=== PATIENT | male | born 1940 | race Caucasian/White ===

== ENCOUNTER 2022-03-23 10:49 | Day surgery (SDC) | payer MEDICARE, OTHER ==
[2022-03-18 10:27] LABS: BASOPHILS % (AUTO) 0.8 % (0-1); EOSINOPHILS # (AUTO) 0.2 X10'3 (0-0.9); HEMATOCRIT 37.6 % (42.0-52.0); HEMOGLOBIN 12.5 g/dl (14.0-17.9); LYMPHOCYTES # (AUTO) 1.4 X10'3 (1.1-4.8); LYMPHOCYTES % (AUTO) 33.4 % (21-51); MEAN CORPUSCULAR HEMOGLOBIN 28.2 PG (27.0-31.0); MEAN CORPUSCULAR HGB CONC 33.3 g/dL (33.0-36.5); MEAN CORPUSCULAR VOLUME 84.6 FL (78-98); MEAN PLATELET VOLUME 6.7 FL (7.4-10.4); MONOCYTES # (AUTO) 0.4 X10'3 (0-0.9); MONOCYTES % (AUTO) 9.9 % (2-12); NEUTROPHILS # (AUTO) 2.1 X10'3 (1.8-7.7); NEUTROPHILS % (AUTO) 51.9 % (42-75); PLATELET COUNT 205 X10'3 (140-440); RED BLOOD COUNT 4.45 X10'6 (4.70-6.10); RED CELL DISTRIBUTION WIDTH 15.4 % (11.5-14.5)
[2022-03-18 10:42] LABS: ALBUMIN 3.3 G/DL (3.4-5.0); ANION GAP 6 (8-16); BLOOD UREA NITROGEN 16 MG/DL (7-18); BUN/CREATININE RATIO 17.8 (5.4-32.0); CALCIUM 8.9 MG/DL (8.5-10.1); CHLORIDE 106 MMOL/L (99-107); CHOL/HDL RATIO 2.3 (0.00-4.99); CHOLESTEROL 157 MG/DL (0-200); GLUCOSE 89 MG/DL (70-104); HDL CHOLESTEROL 67 MG/DL (35-60); LDL CHOLESTEROL 79 MG/DL (50-100); POTASSIUM 4.7 MMOL/L (3.5-5.1); SODIUM 142 MMOL/L (135-145); TRIGLYCERIDES 35 MG/DL (20-135); eGFR 81 ML/MIN
[2022-03-18 10:43] LABS: APTT 38 SECONDS (22-32)
[2022-03-23] VITALS (8 sets, daily range): BP systolic 85–178; BP diastolic 47–85
[~2022-03-23] VITALS: Ht 177.8 cm; Wt 60.3 kg
[2022-03-23] MEDS ORDERED: diphenhydrAMINE 25mg capsule PO PRN (11:15)
[2022-03-23] MEDS ORDERED: normal saline 1,000 ML IV SCH (11:15)
[2022-03-23] MEDS ORDERED: LORazepam 0.5 MG tablet PO PRN (11:15)
[2022-03-23] MEDS ORDERED: FERR28CA PO (11:27)
[2022-03-23] MEDS ORDERED: CHOL2400 PO (11:27)
[2022-03-23] MEDS ORDERED: verapamil 2.5 mg/ml inj IV ONE (12:07)
[2022-03-23] MEDS ORDERED: midazolam 1 mg/ML 2ml injection ONE (12:07)
[2022-03-23] MEDS ORDERED: LIDOcaine 1%/PF 5ML 10 MG/ML VIAL ONE (12:07)
[2022-03-23] MEDS ORDERED: fentaNYL/PF 50MCG/1 ML 2ML syringe ONE (12:07)
[2022-03-23] MEDS ORDERED: iohexol 350MG/ML 100ml bottle IV ONE (12:08)
[2022-03-23] MEDS ORDERED: heparin 1,000unit/ml 10ml vial 10 ML ONE (12:08)
[2022-03-23] MEDS ORDERED: nitroGLYCERIN-Tridil 50MG/D5W 250 ML IV ONE (12:08)
[2022-03-23] MEDS ORDERED: diphenhydrAMINE 50 mg/ml inj ONE (13:40)
[2022-03-23 14:08] LABS: ISTAT HGB ART 11.2 g/dl (14.0-18.0); ISTAT Hct ART 33 %PCV (42-52); ISTAT O2 SATURATION ARTERIAL 93 % (95-98); ISTAT SOURCE ART
[2022-03-23 14:21] LABS: ISTAT Hct MIX 35 %PCV (42-52); ISTAT O2 SATURATION MIX VENOUS 70 % (60-80); ISTAT SOURCE VEN
[2022-03-23] MEDS ORDERED: HYDROcodone/acetaminophen 10/325mg tab PO PRN (14:45)
[2022-03-23] MEDS ORDERED: HYDROcodone/acetaminophen 5mg/325mg tablet PO PRN (14:45)
== END 2022-03-23 16:45 | disposition home or self-care (01) ==
LOC: SSTAY O 10:49
PROVIDERS: ATTEND Student in an Organized Health Care Education/Training Program
DX: I35.0 Nonrheumatic aortic (valve) stenosis (principal); Z79.899 Other long term (current) drug therapy; Z98.890 Other specified postprocedural states; Z79.01 Long term (current) use of anticoagulants
CPT/HCPCS: 36415; 80048; 80061; 82803; 85014; 85025; 85610; 85730; 93005; 93456; 99152; C1769; C1894; J1200; J1644; J2250; J3010; J3490; J7030; Q9967; A4620; A5120; A6258; A6402

== ENCOUNTER 2022-05-05 09:45 | Outpatient (CLI) | payer MEDICARE, OTHER ==
[~2022-05-05 09:45] MED LIST: CHOL2400 PO; FERR28CA PO
[2022-05-05 10:19] LABS: BASOPHILS % (AUTO) 0.9 % (0-1); EOSINOPHILS # (AUTO) 0.1 X10'3 (0-0.9); EOSINOPHILS % (AUTO) 1.8 % (0-6); HEMATOCRIT 36.7 % (42.0-52.0); HEMOGLOBIN 12.3 g/dl (14.0-17.9); LYMPHOCYTES # (AUTO) 1.5 X10'3 (1.1-4.8); LYMPHOCYTES % (AUTO) 34.4 % (21-51); MEAN CORPUSCULAR HEMOGLOBIN 28.8 PG (27.0-31.0); MEAN CORPUSCULAR HGB CONC 33.5 g/dL (33.0-36.5); MEAN CORPUSCULAR VOLUME 85.9 FL (78-98); MEAN PLATELET VOLUME 6.4 FL (7.4-10.4); MONOCYTES # (AUTO) 0.5 X10'3 (0-0.9); MONOCYTES % (AUTO) 10.4 % (2-12); NEUTROPHILS # (AUTO) 2.4 X10'3 (1.8-7.7); NEUTROPHILS % (AUTO) 52.5 % (42-75); PLATELET COUNT 209 X10'3 (140-440); RED BLOOD COUNT 4.27 X10'6 (4.70-6.10); RED CELL DISTRIBUTION WIDTH 14.9 % (11.5-14.5); WHITE BLOOD COUNT 4.5 X10'3 (4.5-11.0)
[2022-05-05 10:30] LABS: APTT 36 SECONDS (22-32)
[2022-05-05 10:32] LABS: ALANINE AMINOTRANSFERASE 16 U/L (12-78); ALBUMIN 3.3 G/DL (3.4-5.0); ALBUMIN/GLOBULIN RATIO 0.8 (1.1-1.5); ALKALINE PHOSPHATASE 77 IU/L (46-116); ANION GAP 2 (8-16); ASPARTATE AMINO TRANSFERASE 18 U/L (10-37); BILIRUBIN,TOTAL 0.5 MG/DL (0.1-1.0); BLOOD UREA NITROGEN 22 MG/DL (7-18); BUN/CREATININE RATIO 21.2 (5.4-32.0); CALCIUM 9.1 MG/DL (8.5-10.1); CHLORIDE 105 MMOL/L (99-107); CREATININE 1.04 MG/DL (0.60-1.10); GLUCOSE 81 MG/DL (70-104); POTASSIUM 4.3 MMOL/L (3.5-5.1); SODIUM 140 MMOL/L (135-145); TOTAL CARBON DIOXIDE 32.8 MMOL/L (24-32); TOTAL PROTEIN 7.3 G/DL (6.4-8.2); eGFR 69 ML/MIN
[2022-05-05] MEDS ORDERED: IODIXANOL 320 MG/ML INFUS..BTL 100ML IV ONE (11:13)
== END 2022-05-05 23:59 | disposition home or self-care (01) ==
LOC: RAD 09:45
PROVIDERS: ATTEND Internal Medicine Cardiovascular Disease
DX: Z01.818 Encounter for other preprocedural examination (principal); R91.8 Other nonspecific abnormal finding of lung field; I70.90 Unspecified atherosclerosis; R94.2 Abnormal results of pulmonary function studies; I35.0 Nonrheumatic aortic (valve) stenosis; R06.02 Shortness of breath; I65.29 Occlusion and stenosis of unspecified carotid artery; Z87.891 Personal history of nicotine dependence; Z79.899 Other long term (current) drug therapy
CPT/HCPCS: 36415; 71046; 71275; 74174; 80053; 85025; 85610; 85730; 94010; 94727; 94729; J3490; Q9967

== ENCOUNTER 2022-06-24 08:17 | Inpatient (IN) | payer MEDICARE, OTHER ==
[2022-06-18 11:32] LABS: BASOPHILS % (AUTO) 0.8 % (0-1); EOSINOPHILS # (AUTO) 0.1 X10'3 (0-0.9); EOSINOPHILS % (AUTO) 2.4 % (0-6); LYMPHOCYTES # (AUTO) 1.7 X10'3 (1.1-4.8); LYMPHOCYTES % (AUTO) 31.8 % (21-51); MEAN CORPUSCULAR HEMOGLOBIN 28.5 PG (27.0-31.0); MEAN CORPUSCULAR HGB CONC 32.8 g/dL (33.0-36.5); MEAN PLATELET VOLUME 6.7 FL (7.4-10.4); MONOCYTES # (AUTO) 0.5 X10'3 (0-0.9); MONOCYTES % (AUTO) 9.6 % (2-12); NEUTROPHILS % (AUTO) 55.4 % (42-75); PRE OP HEMATOCRIT 39.5 % (42.0-52.0); PRE OP HEMOGLOBIN 12.9 g/dL (14.0-17.9); PRE OP PLATELET COUNT 197 X10'3 (140-440); RED BLOOD COUNT 4.54 X10'6 (4.70-6.10); RED CELL DISTRIBUTION WIDTH 15.1 % (11.5-14.5)
[2022-06-18 11:37] LABS: CLARITY,URINE CLEAR (Clear); COLOR,URINE YELLOW (Yellow); GLUCOSE, URINE NEGATIVE (Neg); KETONES,URINE NEGATIVE (Neg); LEUKOCYTE ESTERASE ,URINE NEGATIVE (Neg); NITRITES, URINE NEGATIVE (Neg); OCCULT BLOOD,URINE NEGATIVE (Neg); PROTEIN,URINE NEGATIVE (Neg); UROBILINOGEN,URINE 0.2 E.U/dL (0.2-1.0)
[2022-06-18 11:42] LABS: UA COLLECTION TYPE CLN CATCH MIDSTREAM
[2022-06-18 11:54] LABS: ALBUMIN 3.5 G/DL (3.4-5.0); ALKALINE PHOSPHATASE 73 IU/L (46-116); BLOOD UREA NITROGEN 18 MG/DL (7-18); BUN/CREATININE RATIO 17.1 (5.4-32.0); CALCIUM 9.1 MG/DL (8.5-10.1); CHLORIDE 103 MMOL/L (99-107); CREATININE 1.05 MG/DL (0.60-1.10); PRE OP ALT 13 U/L (30-65); PRE OP ANION GAP 2 (8-16); PRE OP AST 19 U/L (10-37); PRE OP BILIRUB, TOTAL 0.5 MG/DL (0.0-1.0); PRE OP GLUCOSE 95 MG/DL (70-104); PRE OP POTASSIUM 4.9 MMOL/L (3.4-5.1); PRE OP SODIUM 135 MMOL/L (135-145); TOTAL CARBON DIOXIDE 29.9 MMOL/L (24-32); TOTAL PROTEIN 7.1 G/DL (6.4-8.2); eGFR 68 ML/MIN
[2022-06-18 12:01] LABS: PRE OP PROTIME 10.7 SECONDS (9.0-12.0)
[~2022-06-24] VITALS: Ht 170.2 cm; Wt 58.0 kg
[~2022-06-24 08:17] MED LIST changes: -CHOL2400 PO; -FERR28CA PO; +IRON PO; +VITAMIN D3 PO; +aspirin 325mg tablet PO ONE; +ceFAZolin inj. 2,000 MG in dextrose 5%-water 100 ML IV ONE; +famotidine 20mg tablet PO ONE; +nitroPRUSSIDE (NIPRIDE) (200MCG/ML) 100ML Drip IV SCH; +ondansetron/PF 4mg/2ml inj IV PRN; +phenylephrine inj 50 MG in normal saline 250ml IV solN IV SCH; +protamine sulfate 10mg/ml inj. ONE; +ringers solution, lacted 1,000 ML IV SCH; +vancomycin/NS 1 GM in NS 250 ML IV ONE
[2022-06-24 08:55] VITALS: BP_SYST 149; BP_SYST 159; BP_DIAS 78; BP_DIAS 93
[2022-06-24] MEDS ORDERED: LIDOcaine 1% 30ml preserv. free vial ONE (11:54)
[2022-06-24] MEDS ORDERED: heparin 1,000 UNITS/NS 500ml 0 ML ONE (11:54)
[2022-06-24] MEDS ORDERED: iohexol 350MG/ML 100ml bottle IV ONE ×2 (11:54→11:58)
[2022-06-24] MEDS ORDERED: FENTANYL CITRATE/PF 50 MCG/1 ML VIAL ONE ×2 (12:10→13:26)
[2022-06-24] MEDS ORDERED: midazolam 1 mg/ML 2ml injection ONE (12:11)
[2022-06-24] MEDS ORDERED: heparin 1,000 UNITS/NS 500ml 500 ML ONE (12:42)
[2022-06-24] MEDS ORDERED: phenylephrine 10mg/ml inj. -priapism dosing ONE (13:34)
[2022-06-24] MEDS ORDERED: heparin 1,000unit/ml 10ml vial 10 ML ONE (13:34)
[2022-06-24] MEDS ORDERED: epiNEPHrine 1 mg/ml inj ONE (13:34)
[2022-06-24] MEDS ORDERED: propofol inj 40 ML IV ONE (13:34)
[2022-06-24] MEDS ORDERED: labetalol 20mg/4ml (5mg/ml) syringe IV ONE (13:45)
[2022-06-24] MEDS ORDERED: hydrALAZINE 20mg/ml inj. IV ONE ×2 (13:51→14:38)
[2022-06-24] MEDS ORDERED: docusate sod 100mg capsule PO PRN (13:55)
[2022-06-24] MEDS ORDERED: ondansetron/PF 4mg/2ml inj IV PRN (13:55)
[2022-06-24] MEDS ORDERED: diphenhydrAMINE 25mg capsule PO PRN (13:55)
[2022-06-24] MEDS ORDERED: magnesium 2GM in 50ml NS 50 ML IV PRN (13:55)
[2022-06-24] MEDS ORDERED: ALPRAZolam 0.25mg tablet PO PRN (13:55)
[2022-06-24] MEDS ORDERED: potassium Cl 40MEQ/270ML bag 250 ML IV PRN (13:55)
[2022-06-24] MEDS ORDERED: potassium Cl 20mEq/100mL bag 100 ML IV PRN (13:55)
[2022-06-24] MEDS ORDERED: potassium Cl 40MEQ/1/2NS 520ml 520 ML IV PRN (13:55)
[2022-06-24] MEDS ORDERED: potassium Cl 20 mEq SR tablet PO PRN (13:55)
[2022-06-24] MEDS ORDERED: hydrALAZINE 20mg/ml inj. IV PRN (13:55)
[2022-06-24] MEDS: normal saline 1000ml 1,000 ML IV SCH ×2 (13:55→23:55)
[2022-06-24] MEDS ORDERED: magnesium 4gm in 100ml NS 100 ML IV PRN (13:55)
[2022-06-24] MEDS ORDERED: acetaminophen 325mg tablet PO PRN (13:55)
[2022-06-24] MEDS ORDERED: pantoprazole 40mg Tablet.DR PO PRN (13:55)
[2022-06-24] MEDS ORDERED: proCHLORperazine 10 MG/2 ml inj IV PRN (13:55)
[2022-06-24] MEDS ORDERED: labetalol 20mg/4ml (5mg/ml) syringe IV PRN (13:55)
[2022-06-24] MEDS ORDERED: potassium CL 10mEq/100ml bag 100 ML IV PRN (13:55)
[2022-06-24 13:59] VITALS: BP 141/69
--- NOTE | 2022-06-24 13:59 | NUR ---
Received from OR via BED, accompanied by Anesthesiologist CHARISMA AND OR NURSE and report given by Anesthesiolgist. PT IS A/O X4. DENIES PAIN OR DISCOMFORT. ART LINE ZEROED AND WNL. BILATERAL GROIN DRESSINGS; CDI. PULSES PALPABLE AND NORMAL. CONTINUE TO ASSESS. Addendum: 06/24/22 at 1456 by Ana Rosa Calvo RN Amended: Links added.
--- NOTE | 2022-06-24 15:05 | NUR ---
Patient in room PAS IN 902. I have received report from Huyen ROSS and had the opportunity to ask questions and assume patient care.
--- NOTE | 2022-06-24 15:19 | NUR ---
Report called to receiving nurse. Transferred via BED WITH 1 BAG OF Belongings ARTLINE REMOVED WITHOUT COMPLICATIONS. BILATERAL GROIN DRESSINGS; CDI. VSS. SPOUSE AT BEDSIDE. RECEIVING NURSE AT BEDSIDE.. Special Issues communicated to receiving nurse. Addendum: 06/24/22 at 1525 by Ana Rosa Calvo RN Amended: Links added.
[2022-06-24] MEDS: sod chloride 0.9% 10ml flush syringe IV SCH (16:00)
[2022-06-24 16:46] VITALS: BP 87/58
[2022-06-24] MEDS: ceFAZolin 1GM/D5W- ADD-VANTAGE 50 ML IV SCH (17:45)
[2022-06-24 18:00] VITALS: BP 63/69
--- NOTE | 2022-06-24 18:00 | NUR ---
Patient in room PCU 3025. I have received report from Alee ROSS and had the opportunity to ask questions and assume patient care.
--- NOTE | 2022-06-24 18:00 | NUR ---
Patient in room PCU 3025. I have received report from Alee ROSS and had the opportunity to ask questions and assume patient care.
--- NOTE | 2022-06-24 19:00 | NUR ---
Problems reprioritized. Patient report given, questions answered & plan of care reviewed with Ann Marie ROSS, patient stable at transfer of care.
[2022-06-24] MEDS: vancomycin/NS 1 GM ADD-VANTAGE 250 ML IV SCH (20:33)
[2022-06-24 22:00] VITALS: BP 109/54
[2022-06-24 23:00] VITALS: BP 125/56
[2022-06-25] VITALS: BP 101/52
[2022-06-25 02:00] VITALS: BP 129/64
[2022-06-25] MEDS: ceFAZolin 1GM/D5W- ADD-VANTAGE 50 ML IV SCH ×2 (02:42→08:26)
--- NOTE | 2022-06-25 06:50 | NUR ---
Patient in room PCU 3025. I have received report from Ann Marie ROSS and had the opportunity to ask questions and assume patient care.
[2022-06-25 07:00] VITALS: BP 129/64
--- NOTE | 2022-06-25 07:24 | NUR ---
Problems reprioritized. Patient report given, questions answered & plan of care reviewed with Jenny ROSS.
[2022-06-25] MEDS: sod chloride 0.9% 10ml flush syringe IV SCH ×2 (08:00)
[2022-06-25 08:05] LABS: BASOPHILS % (AUTO) 0.3 % (0-1); EOSINOPHILS % (AUTO) 0.6 % (0-6); HEMATOCRIT 37.3 % (42.0-52.0); HEMOGLOBIN 12.6 g/dl (14.0-17.9); LYMPHOCYTES # (AUTO) 1.2 X10'3 (1.1-4.8); LYMPHOCYTES % (AUTO) 14.8 % (21-51); MEAN CORPUSCULAR HEMOGLOBIN 29.4 PG (27.0-31.0); MEAN CORPUSCULAR HGB CONC 33.9 g/dL (33.0-36.5); MEAN CORPUSCULAR VOLUME 86.8 FL (78-98); MEAN PLATELET VOLUME 6.7 FL (7.4-10.4); MONOCYTES # (AUTO) 0.8 X10'3 (0-0.9); MONOCYTES % (AUTO) 10.3 % (2-12); NEUTROPHILS # (AUTO) 5.9 X10'3 (1.8-7.7); PLATELET COUNT 137 X10'3 (140-440); RED BLOOD COUNT 4.29 X10'6 (4.70-6.10); RED CELL DISTRIBUTION WIDTH 14.8 % (11.5-14.5); WHITE BLOOD COUNT 7.9 X10'3 (4.5-11.0)
[2022-06-25 08:33] LABS: ALANINE AMINOTRANSFERASE 13 U/L (12-78); ALBUMIN 3.1 G/DL (3.4-5.0); ALBUMIN/GLOBULIN RATIO 0.9 (1.1-1.5); ALKALINE PHOSPHATASE 67 IU/L (46-116); ANION GAP 7 (8-16); ASPARTATE AMINO TRANSFERASE 44 U/L (10-37); BILIRUBIN,TOTAL 0.9 MG/DL (0.1-1.0); BLOOD UREA NITROGEN 16 MG/DL (7-18); BUN/CREATININE RATIO 16.3 (5.4-32.0); CALCIUM 8.6 MG/DL (8.5-10.1); CHLORIDE 102 MMOL/L (99-107); CREATININE 0.98 MG/DL (0.60-1.10); GLUCOSE 90 MG/DL (70-104); POTASSIUM 4.1 MMOL/L (3.5-5.1); SODIUM 137 MMOL/L (135-145); TOTAL CARBON DIOXIDE 28.4 MMOL/L (24-32); TOTAL PROTEIN 6.6 G/DL (6.4-8.2); eGFR 74 ML/MIN
[2022-06-25] MEDS: vancomycin/NS 1 GM ADD-VANTAGE 250 ML IV SCH (09:20)
[2022-06-25] MEDS ORDERED: CLOP-32 PO (09:39)
[2022-06-25] MEDS ORDERED: ASPI-611 PO (09:39)
[2022-06-25] MEDS: normal saline 1000ml 1,000 ML IV SCH (09:55)
[2022-06-25] MEDS ORDERED: ibuprofen 100 MG/5 ML oral susp PO PRN (11:05)
[2022-06-25 11:06] VITALS: BP 152/70
--- NOTE | 2022-06-25 11:06 | NUR ---
rec'd order from Shanae GONZALEZ for oral susp ibuprofen. Called pharmacy for dosage as this is weight based. Entered order.
--- NOTE | 2022-06-25 12:00 | NUR ---
Pt ambulated 300 ft with FWW, no pain, no SOB. Bilat groins CDI
--- NOTE | 2022-06-25 12:55 | NUR ---
Orientee documentation: I have reviewed and agree with all interventions, assessments performed and documented by ALBERTO Merrill II.
--- NOTE | 2022-06-25 12:56 | NUR ---
Patient discharged home with all belongings and discharge instructions. Patient was accompanied out by nurse and left with in private vehicle.
== END 2022-06-25 12:53 | disposition home or self-care (01) | DRG 267 ==
LOC: PAS IN 08:17 → PCU 3S 15:23
PROVIDERS: ADMIT Internal Medicine Cardiovascular Disease; ATTEND Internal Medicine Cardiovascular Disease
PROC: 027F3ZZ Dilation of Aortic Valve, Percutaneous Approach (ICD-10-PCS; 2022-06-24)
PROC: B41D1ZZ Fluoroscopy of Aorta and Bilateral Lower Extremity Arteries using Low Osmolar Contrast (ICD-10-PCS; 2022-06-24)
PROC: B2111ZZ Fluoroscopy of Multiple Coronary Arteries using Low Osmolar Contrast (ICD-10-PCS; 2022-06-24)
PROC: 02RF38Z Replacement of Aortic Valve with Zooplastic Tissue, Percutaneous Approach (ICD-10-PCS; principal; 2022-06-24 12:15)
DX: I35.0 Nonrheumatic aortic (valve) stenosis (principal); Z00.6 Encounter for examination for normal comparison and control in clinical research program; I25.10 Atherosclerotic heart disease of native coronary artery without angina pectoris
CPT/HCPCS: 33361; 36415; 71045; 71046; 76937; 80053; 81003; 82948; 83735; 83880; 85025; 85347; 85610; 85730; 86885; 86900; 86901; 86920; 87081; 93005; 93308; 93454; A4618; A6258; A6449; C1756; C1760; C1769; C1894; G0378; J0171; J0360; J0690; J1644; J2250; J2370; J2405; J2704; J2720; J3010; J3370; J3490; J7040; J7050; J7060; J7120; Q9967